=== PATIENT | female | born 1985 | race African-American/Black ===

== ENCOUNTER 2018-02-10 17:28 | Emergency (ER) | payer MEDICAID ==
[~2018-02-10] VITALS: Ht 167.6 cm; Wt 65.0 kg
[2018-02-11] MEDS ORDERED: ACETAMINOPHEN 325MG TABLET PO ONE
[2018-02-11] MEDS ORDERED: IBUPROFEN 600MG TABLET PO ONE
[2018-02-11 02:14] VITALS: BP 109/65
== END 2018-02-11 02:15 | disposition home or self-care (01) ==
LOC: ER 17:28
DX: M54.5 Low back pain (principal); J45.909 Unspecified asthma, uncomplicated; V43.62XA Car passenger injured in collision with other type car in traffic accident, initial encounter; Y93.89 Activity, other specified; Y92.488 Other paved roadways as the place of occurrence of the external cause
CPT/HCPCS: 72100; 73060; 73562; 73590; 81025; 99284

== ENCOUNTER 2018-03-19 12:08 | Emergency (ER) | payer MEDICAID ==
[~2018-03-19] VITALS: Ht 172.7 cm; Wt 91.0 kg
[2018-03-19] MEDS ORDERED: KETOROLAC 15MG/ML VIAL IM ONE (13:15)
[2018-03-19 15:45] VITALS: BP 109/61
== END 2018-03-19 16:00 | disposition home or self-care (01) ==
LOC: ER 13:52
DX: M25.562 Pain in left knee (principal); J45.909 Unspecified asthma, uncomplicated; R94.31 Abnormal electrocardiogram [ECG] [EKG]; Z88.8 Allergy status to other drugs, medicaments and biological substances
CPT/HCPCS: 36415; 73590; 81025; 85379; 93005; 93971; 96372; 99285; J1885

== ENCOUNTER 2022-04-10 17:22 | Emergency (ER) | payer MEDICAID, OTHER ==
[~2022-04-10] VITALS: Ht 175.3 cm; Wt 75.0 kg
[2022-04-11 01:48] VITALS: BP 118/74
[2022-04-11 03:18] LABS: BASOPHILS % 0.6 % (0.0-2.0); EOSINOPHILS % 1.4 % (0.0-5.0); HEMATOCRIT. 38.4 % (36.0-48.0); HEMOGLOBIN. 12.9 g/dL (12.0-16.0); LYMPHOCYTES % 33.5 % (20.0-50.0); MEAN CORPUSCULAR HEMOGLOBIN 29.7 pg (28.0-32.0); MEAN CORPUSCULAR VOLUME 88.4 fL (81.0-99.0); MEAN PLATELET VOLUME 7.5 fl (7.4-10.4); NEUTROPHILS % 56.5 % (40.0-76.0); PLATELET 264 x1000/uL (130-400); RED BLOOD CELL COUNT 4.34 mill/uL (4.2-5.4); RED CELL DISTRIBUTION WIDTH 14.6 % (11.6-14.6)
[2022-04-11 03:24] LABS: CHLORIDE 105 mEq/L (98-107)
[2022-04-11 03:29] LABS: CLARITY URINE CLEAR (CLEAR); COLOR URINE YELLOW (YELLOW); KETONES URINE TRACE (NEGATIVE); LEUKOCYTE ESTERASE URINE NEGATIVE (NEGATIVE); NITRITE URINE NEGATIVE (NEGATIVE); OCCULT BLOOD URINE NEGATIVE (NEGATIVE); PH URINE 6.5 (4.5-8.0); PROTEIN URINE TRACE (NEGATIVE); SPECIFIC GRAVITY URINE 1.026 (1.005-1.030)
== END 2022-04-11 05:52 | disposition home or self-care (01) ==
LOC: ER 17:22
DX: R11.2 Nausea with vomiting, unspecified (principal)
CPT/HCPCS: 36415; 80053; 81003; 81025; 83690; 85025; 99283; Z7610